=== PATIENT | male | born 1975 | race African-American/Black ===

== ENCOUNTER 2018-03-11 15:33 | Emergency (ER) | payer OTHER ==
[2018-03-11] MEDS: CEPHALEXIN 500 MG CAP PO (16:03)
[2018-03-11] MEDS: IBUPROFEN 800 MG TAB PO (16:03)
[2018-03-11] MEDS: TRIMETHOPRIM/SULFAMETHOX (DS) TAB PO (16:03)
== END 2018-03-11 16:26 | disposition home or self-care (01) ==
LOC: E/R 15:33
DX: L02.01 Cutaneous abscess of face (principal); Z87.891 Personal history of nicotine dependence
CPT/HCPCS: 99284; Z7502

== ENCOUNTER 2018-07-29 20:33 | Emergency (ER) | payer OTHER ==
[2018-07-29] MEDS: ACETAMINOPHEN 500 MG TAB PO (21:26)
== END 2018-07-29 21:57 | disposition home or self-care (01) ==
LOC: FTE 20:33
DX: J18.9 Pneumonia, unspecified organism (principal); F17.210 Nicotine dependence, cigarettes, uncomplicated; J45.909 Unspecified asthma, uncomplicated
CPT/HCPCS: 71045; 99283-25